=== PATIENT | female | born 1955 | race Caucasian/White ===

== ENCOUNTER 2017-03-30 11:17 | Emergency (ER) | payer OTHER ==
--- NOTE | 2017-03-30 12:12 | XRAY Preliminary Report ---
Exam: XR Ankle 3 View LT IMPRESSION: 1. Bimalleolar fractures with a minimally displaced Couch type B oblique fracture in the distal fibul a and a tiny nondisplaced avulsion fracture at the tip of the medial malleolus. 2. No definite posterior malleolar fracture is demonstrated. [facility] SITE ID: [id number]
--- NOTE | 2017-03-30 12:14 | XRAY Report ---
EXAM: LEFT ANKLE RADIOGRAPHY EXAM DATE: 03/30/2017 11:58 AM. CLINICAL HISTORY: Injury. Left ankle pain and swelling. COMPARISON: None. TECHNIQUE: 3 views. FINDINGS: Bones: Bimalleolar fractures with a minimally displaced Couch type B oblique fracture in the distal f ibula and a tiny nondisplaced avulsion fracture at the tip of the medial malleolus. No definite poste rior malleolar fracture is demonstrated. A fixation screw in the base of the first metatarsal. Joints: Normal. No effusion. No subluxations. The ankle mortise is normally aligned. Soft Tissues: Lateral malleolar soft tissue swelling. IMPRESSION: 1. Bimalleolar fractures with a minimally displaced Couch type B oblique fracture in the distal fibul a and a tiny nondisplaced avulsion fracture at the tip of the medial malleolus. 2. No definite posterior malleolar fracture is demonstrated. [facility] Referring Provider Line: [phone] SITE ID: [id number]
--- NOTE | 2017-03-30 12:59 | ED Physician Documentation ---
PD HPI LOWER EXT INJURY - Stated complaint Stated Complaint: LT ANKLE PX - Chief complaint Chief Complaint: Ext Problem - History obtained from History obtained from: Patient - History of Present Illness PD HPI LOW EXT INJURY LOCATION: Other (Slip and fall on grass today, she is visiting from [place]. Has moderate left ankle pain and is unable to walk. No other injuries.) Review of Systems Ten Systems: 10 systems reviewed and negative Constitutional: denies: Fever, Chills, Myalgias Respiratory: reports: Reviewed and negative GI: reports: Reviewed and negative : reports: Reviewed and negative PD PAST MEDICAL HISTORY - Past Medical History Neuro: Peripheral neuropathy - Past Surgical History Past Surgical History: Yes Ortho: Rotator cuff repair, Other - Present Medications Home Medications: Ambulatory Orders Medication Instructions Recorded Confirmed Fentanyl [Fentanyl 25mcg patch] 75 mcg TD 03/30/17 HYDROcod/ACETAM 5/325 [Oneco 5/325] 1 - 2 ea PO Q6H PRN #20 tablet 03/30/17 Knee Scooter 1 unit TD ONCE #1 03/30/17 - Allergies Allergies/Adverse Reactions: Allergies Allergy/AdvReac Type Severity Reaction Status Date / Time No Known Drug Allergies Allergy Verified 03/30/17 11:27 - Social History Does the pt smoke?: No Smoking Status: Never smoker Does the pt drink ETOH?: No Does the pt have substance abuse?: No - Immunizations Immunizations are current?: Yes PD ED PE NORMAL - Vitals Vital signs reviewed: Yes - General General: Alert and oriented X 3, No acute distress - Neck Neck: Supple, no meningeal sign, No bony TTP - Extremities Extremities: Other (Quite tender to both malleoli of the left ankle with intact pedal pulses and sensation, no proximal fibular or foot tenderness.) - Neuro Neuro: Alert and oriented X 3, Normal speech - Psych Psych: Normal mood, Normal affect Results - Vitals Vitals: Vital Signs - 24 hr 03/30/17 11:24 Temperature 36.8 C Heart Rate 94 Respiratory 18 Rate Blood Pressure 139/85 H O2 Saturation 98 Oxygen O2 Source Room air - Rads (name of study) L ankle 3v Radiology: EMP read contemporaneously (Bimalleolar fracture with Couch type B oblique fracture of the distal fibula and a tiny chip fracture at the medial malleolus.) Procedures - Splint (location) L ankle Splint applied by: Tech Type of splint: Fiberglass, Long leg, Posterior Other: Patient tolerated well, No complications, Neurovascular intact. No: Crutches provided (She says she cannot use crutches because of the bad shoulder , she was prescribed a knee scooter instead.) PD MEDICAL DECISION MAKING - ED course ED course: The patient and family were counseled as to the diagnosis and need for follow- up. I counseled the patient with regard to signs and symptoms that would necessitate an urgent reevaluation in the emergency department. They understand they are welcome to return at any time if worse or if not improving as expected. This document was made in part using voice recognition software. While efforts are made to proofread this documents, sound alike and grammatical errors may occur. Departure - Departure Disposition: 01 Home, Self Care Clinical Impression: Fracture of distal fibula Qualifiers: Encounter type: initial encounter Fracture type: closed Fracture morphology: other fracture Laterality: left Qualified Code(s): S82.832A - Other fracture of upper and lower end of left fibula, initial encounter for closed fracture Condition: Stable Record reviewed to determine appropriate education?: Yes Instructions: ED Fx Lower Ext Prescriptions: Knee Scooter 1 unit TD ONCE #1 HYDROcod/ACETAM 5/325 [Oneco 5/325] 1 - 2 ea PO Q6H PRN #20 tablet PRN Reason: Pain Comments: Do not walk or bear weight on the left foot insulated until advised it is safe to do so by an orthopedic surgeon. Keep the splint on and dry until you follow- up. Follow-up as soon as you get home. Do not drink or drive while taking narcotic pain medication. Note that many narcotic pain relievers also contain Tylenol/acetaminophen. Please ensure that your total dose of acetaminophen from all sources does not exceed 3 g (3000 mg) per day. You may get constipated while on this medication. Take a stool softener such as Colace twice a day while you are on it. Also add an [id number] laxative such as senna or MiraLAX on any day that you do not have a bowel movement. If you received a narcotic pain medication or sedative while in the emergency department, do not drive for the next 24 hours. Your blood pressure was elevated today on check into the emergency department. This does not mean that you have hypertension, it is a common phenomenon to come to the emergency department and have elevated blood pressure. I recommend that she see her primary care physician within the week to have it rechecked when you are feeling better.
[2017-03-30 14:00] VITALS: BP 145/91
== END 2017-03-30 13:53 | disposition home or self-care (01) ==
LOC: ED 11:17
DX: S82.842A Displaced bimalleolar fracture of left lower leg, initial encounter for closed fracture (principal); G62.9 Polyneuropathy, unspecified; W01.0XXA Fall on same level from slipping, tripping and stumbling without subsequent striking against object, initial encounter
CPT/HCPCS: 29505; 99283

== ENCOUNTER 2017-04-04 12:51 | Day surgery (SDC) | payer OTHER ==
[2017-04-04] MEDS ORDERED: ceFAZolin 2 GM/50 ML 50 ML IV ONE (13:24)
[2017-04-04] MEDS ORDERED: LACTATED RINGERS 1,000 ML IV ONE ×2 (13:48→14:45)
[2017-04-04] MEDS ORDERED: BUPIVACAINE 0.5%-EPI 1:200000 PF 30 ML VIAL SUBQ ONE (14:29)
[2017-04-04] MEDS ORDERED: PROPOFOL 200 MG/20 ML VIAL IVP ONE (14:40)
[2017-04-04] MEDS ORDERED: LIDOCAINE 2% 20 ML MDV IV ONE (14:40)
[2017-04-04] MEDS ORDERED: ONDANSETRON 4 MG/2 ML VIAL IVP ONE (14:40)
[2017-04-04] MEDS ORDERED: fentaNYL 100 MCG/2 ML VIAL IVP ONE (14:40)
[2017-04-04] MEDS ORDERED: MIDAZOLAM 2 MG/2 ML VIAL IVP ONE (14:40)
[2017-04-04] MEDS ORDERED: DEXAMETHASONE 4 MG/ML VIAL IVP ONE (14:40)
[2017-04-04] MEDS: HYDROmorphone 1 MG/ML SYRINGE ONE ×5 (15:04→15:39)
[2017-04-04] MEDS: MEPERIDINE 50 MG/ML SYRINGE ONE ×3 (15:07→15:17)
[2017-04-04] MEDS: fentaNYL 100 MCG/2 ML VIAL ONE ×2 (15:14→15:19)
[2017-04-04] MEDS ORDERED: fentaNYL 100 MCG/2 ML VIAL ONE (15:25)
[2017-04-04] MEDS ORDERED: ACETAMINOPHEN 1,000 MG/100 ML 100 ML IV ONE (15:36)
[2017-04-04] MEDS ORDERED: MIDAZOLAM 2 MG/2 ML VIAL ONE (16:03)
[2017-04-04 16:26] VITALS: BP 113/71
--- NOTE | 2017-04-13 14:45 | OPERATIVE REPORT ---
DATE OF SURGERY: 04/04/2017 00:00:00 PREOPERATIVE DIAGNOSIS: Left ankle lateral malleolus displaced fracture. POSTOPERATIVE DIAGNOSIS: Left ankle lateral malleolus displaced fracture. NAME OF PROCEDURE: Open reduction internal fixation of left lateral malleolus fracture. SURGEON: Missy Nolan MD ANESTHESIA: General. INDICATIONS FOR SURGERY: The patient is a 61-year-old female status post an ankle injury with fractur e of her fibula and displacement. Recommendation is that she undergo operative repair. DESCRIPTION OF OPERATIVE PROCEDURE: The patient was taken to the operating room, given a general anes thetic in the supine position with a tourniquet on her thigh. Her ankle was sterilely prepped and hernan ped in standard fashion. The ankle was approached through a 4 inch incision laterally and the fractur e identified and reduced into position. A Synthes 3.5 DC locking plate was applied using standard Syn thes technique, and after it was applied, the ankle mortise was stressed, and there was no instabilit y as documented on imaging with the fluoroscopy. The wound was irrigated, and closure was undertaken with Vicryl in subcutaneous tissues and Monocryl in skin. Sterile dressings and a well-padded sugar-t tesha splint were applied. The patient was taken to the recovery room in stable condition. ESTIMATED BLOOD LOSS: Minimal. COMPLICATIONS: None. SPONGE AND NEEDLE COUNTS: Correct. JOB #: [id number] EXT JOB #:[id number]
== END 2017-04-04 12:52 | disposition home or self-care (01) ==
LOC: SDS 12:51
PROVIDERS: ATTEND Orthopaedic Surgery
PROC: 0QSK04Z Reposition Left Fibula with Internal Fixation Device, Open Approach (ICD-10-PCS; principal; 2017-04-04 13:00)
DX: S82.62XA Displaced fracture of lateral malleolus of left fibula, initial encounter for closed fracture (principal); W19.XXXA Unspecified fall, initial encounter; F32.9 Major depressive disorder, single episode, unspecified; B19.20 Unspecified viral hepatitis C without hepatic coma
CPT/HCPCS: 27792; C1713; J0131; J0690; J1170; J7120